=== PATIENT | female | born 2000 | race Two or more races ===

== ENCOUNTER 2025-05-05 18:27 | Emergency (ER) | payer MEDICAID, OTHER ==
[~2025-05-05] VITALS: Ht 157.5 cm; Wt 59.0 kg
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
--- NOTE | 2025-05-05 20:02 | DVH ---
CLINICAL INDICATION: Pain TECHNIQUE: 4 radiographic views of the facial bones were obtained. Comparison: None FINDINGS/IMPRESSION: There is no evidence of acute fracture . The visualized paranasal sinuses and mastoids are clear. If symptoms persist, consider CT for further evaluation.
[2025-05-05 20:32] VITALS: TEMP 98.1
[2025-05-05] MEDS ORDERED: TIZA10TA PO (20:53)
[2025-05-05] MEDS ORDERED: IBUP-1456 PO (20:53)
[2025-05-05] MEDS ORDERED: ZOFR4T PO (21:00)
[2025-05-05] MEDS: ONDANSETRON ODT 4 MG TAB PO ONE (21:09)
[2025-05-05 21:15] VITALS: BP 106/71; PULSE 87; RESP 18; O2SAT 99
== END 2025-05-05 21:30 | disposition home or self-care (01) ==
LOC: EDBD 18:27 → ER 18:27
DX: S01.511A Laceration without foreign body of lip, initial encounter (principal); S13.4XXA Sprain of ligaments of cervical spine, initial encounter; V89.2XXA Person injured in unspecified motor-vehicle accident, traffic, initial encounter; Y93.I9 Activity, other involving external motion; Y92.488 Other paved roadways as the place of occurrence of the external cause; Y99.8 Other external cause status
CPT/HCPCS: 70140; 72040; 99284; Q0162